=== PATIENT | male | born 1985 | race Hispanic/Latino ===

== ENCOUNTER 2017-03-27 22:55 | Emergency (ER) | payer MEDICAID, OTHER ==
[2017-03-27 23:17] VITALS: BMI 25.7
[2017-03-27 23:36] VITALS: TEMP 98.7; O2SAT 96
--- NOTE | 2017-03-27 23:42 | ED PDOC ---
Arrival/HPI - General Time Seen by Provider: 03/27/17 23:17 Historian: Patient - History of Present Illness Narrative History of Present Illness (Text): 03/27/17 23:39 Prashanth Griffith is a 31 year old male, with a history of opiate abuse, presents to the emergency department for evaluation following heroin overdose. Patient was given narcan in the field by EMT after which he regained consciousness. Patient states he injected and snorted heroin. Denies any suicidal or homicidal ideation. Symptom Onset: Sudden Symptom Course: Improving Severity Level: Mild Context: Home Past Medical History - Provider Review Nursing Documentation Reviewed: Yes - Infectious Disease Hx of Infectious Diseases: None - Cardiac Hx Cardiac Disorders: No Hx Hypertension: No - Pulmonary Hx Respiratory Disorders: No Hx Tuberculosis: No - Neurological Hx Neurological Disorder: No Hx Seizures: No - HEENT Hx HEENT Disorder: No - Renal Hx Renal Disorder: No - Endocrine/Metabolic Hx Endocrine Disorders: No - Hematological/Oncological Hx Blood Disorders: No - Integumentary Hx Dermatological Disorder: No - Musculoskeletal/Rheumatological Hx Falls: No - Gastrointestinal Hx Gastrointestinal Disorders: No - Genitourinary/Gynecological Hx Genitourinary Disorders: No Hx Sexually Transmitted Diseases: No - Psychiatric Hx Substance Use: Yes (+Heroin, +Cocaine, +Marijuana) - Anesthesia Hx Anesthesia: No Family/Social History - Physician Review Nursing Documentation Reviewed: Yes Family/Social History: No Known Family HX Smoking Status: Heavy Smoker > 10 Cigarettes Daily Hx Alcohol Use: Yes (Socially) Hx Substance Use: Yes (+Heroin, +Cocaine, +Marijuana) Substance used: heroin Allergies/Home Meds Allergies/Adverse Reactions: Allergies No Known Allergies Allergy (Verified 05/24/16 19:53) Review of Systems - Physician Review All systems were reviewed & negative as marked: Yes - Review of Systems Constitutional: Normal. absent: Fatigue, Fevers Respiratory: absent: SOB, Cough Cardiovascular: absent: Chest Pain, Palpitations Gastrointestinal: absent: Abdominal Pain, Diarrhea, Nausea, Vomiting Neurological: absent: Headache, Dizziness Psychiatric: Other (heroin overdose ). absent: Suicidal Ideation Physical Exam Vital Signs Reviewed: Yes Vital Signs Temp Pulse Resp BP Pulse Ox 03/28/17 02:08 108 H 19 102/78 96 03/28/17 01:00 115 H 16 115/78 95 03/27/17 23:15 98.7 F 141 H 18 128/80 96 Temperature: Afebrile Blood Pressure: Normal Pulse: Tachycardic Respiratory Rate: Normal Appearance: Positive for: Comfortable Pain Distress: None Mental Status: Positive for: Alert and Oriented X 3 - Systems Exam Head: Present: Atraumatic, Normocephalic Pupils: Present: PERRL Conjunctiva: Present: Normal Mouth: Present: Moist Mucous Membranes Respiratory/Chest: Present: Clear to Auscultation, Good Air Exchange. No: Respiratory Distress, Accessory Muscle Use Cardiovascular: Present: Normal S1, S2, Tachycardic. No: Murmurs Abdomen: Present: Normal Bowel Sounds. No: Tenderness, Distention, Peritoneal Signs Upper Extremity: Present: Normal Inspection. No: Cyanosis, Edema Lower Extremity: Present: Normal Inspection. No: Edema Neurological: Present: GCS=15, CN II-XII Intact, Motor Func Grossly Intact, Normal Sensory Function. No: Speech Normal (slurred speech ) Skin: Present: Warm, Dry, Normal Color. No: Rashes Psychiatric: Present: Alert, Oriented x 3. No: Suicidal Ideation, Homicidal Ideation Medical Decision Making ED Course and Treatment: 03/27/17 23:44 Impression: A 31 year old male who presents to the emergency department for evaluation of heroin overdose. Plan: -- EKG -- Labs -- IV fluids -- Reassess and disposition Progress Notes: 03/27/17 23:45 EKG reviewed by me: Sinus Tachycardia @ 138 bpm. Normal axis. Normal interval. 03/28/17 02:32 Patient is ambulatory in the emergency department with steady gait. Patient's friend is willing to take patient home. Patient is stable for discharge. Advised to present to emergency department for any new/worsening symptoms and follow up with PMD within few days. - Lab Interpretations Lab Results: 03/28/17 00:30 03/28/17 00:30 Lab Results 03/28/17 00:30: Sodium 142, Potassium 4.6, Chloride 105, Carbon Dioxide 24, Anion Gap 18, BUN 15, Creatinine 0.9, Est GFR ( Amer) > 60, Est GFR (Non- Af Amer) > 60, Random Glucose 105, Calcium 8.9, Total Bilirubin 0.4, AST 39, ALT 57 H, Alkaline Phosphatase 66, Total Protein 7.9, Albumin 4.5, Globulin 3.3 , Albumin/Globulin Ratio 1.4 03/28/17 00:30: WBC 9.4, RBC 4.58, Hgb 12.5 L, Hct 36.8 L, MCV 80.3, MCH 27.3, MCHC 34.0, RDW 15.4 H, Plt Count 259, MPV 9.3, Gran % 83.7 H, Lymph % (Auto) 13.1 L, Barnes % (Auto) 3.0, Eos % (Auto) 0.0 L, Baso % (Auto) 0.2, Gran # 7.88 H , Lymph # 1.2, Barnes # 0.3, Eos # 0.0, Baso # 0.02 I have reviewed the lab results: Yes - EKG Interpretation Interpreted by ED Physician: Yes Type: 12 lead EKG - Medication Orders Current Medication Orders: Discontinued Medications Sodium Chloride (Sodium Chloride 0.9%) 1,000 mls @ 1,000 mls/hr IV .Q1H VIVIAN Last Admin: 03/28/17 00:34 Dose: 1,000 mls/hr - Scribe Statement The provider has reviewed the documentation as recorded by the Theo Avelar Provider Attestation: Provider Scribe Attestation: All medical record entries made by the Scribe were at my direction and personally dictated by me. I have reviewed the chart and agree that the record accurately reflects my personal performance of the history, physical exam, medical decision making, and the department course for this patient. I have also personally directed, reviewed, and agree with the discharge instructions and disposition. Disposition/Present on Arrival - Present on Arrival Any Indicators Present on Arrival: No History of DVT/PE: No History of Uncontrolled Diabetes: No Urinary Catheter: No History Surgical Site Infection Following: None - Disposition Have Diagnosis and Disposition been Completed?: Yes Diagnosis: Heroin dependence Disposition: HOME/ ROUTINE Disposition Time: 02:30 Condition: GOOD Discharge Instructions (ExitCare): Narcotic Abuse (ED) Forms: [employer] (Bel[place]ian)
[2017-03-27] MEDS ORDERED: Sodium Chloride 0.9% 1,000 ML IV SCH (23:45)
[2017-03-28 01:01] LABS: BASO # 0.02 K/mm3 (0.0-2.0); BASO % 0.2 % (0.0-3.0); GRAN # 7.88 (1.4-6.5); GRAN % 83.7 % (50.0-68.0); HEMOGLOBIN 12.5 g/dL (14.0-18.0); LYMPH # 1.2 (1.2-3.4); LYMPH % 13.1 % (22.0-35.0); MEAN CELL VOLUME 80.3 fl (80.0-105.0); MEAN CORPUSCULAR HEMOGLOBIN 27.3 pg (25.0-35.0); MEAN PLATELET VOLUME 9.3 fl (7.0-11.0); MONO # 0.3 (0.1-0.6); PLATELET COUNT 259 10^3/uL (120.0-450.0); RBC 4.58 10^6/uL (3.5-6.1); RED CELL DISTRIBUTION WIDTH 15.4 % (11.5-14.5); WHITE BLOOD COUNT 9.4 10^3/ul (4.5-11.0)
[2017-03-28 01:03] LABS: ALB/GLOB RATIO 1.4 (1.1-1.8); ALBUMIN 4.5 g/dL (3.0-4.8); ALT/SGPT 57 U/L (7-56); AST/SGOT 39 U/L (15-59); BLOOD UREA NITROGEN 15 mg/dL (7-21); CALCIUM 8.9 mg/dL (8.4-10.5); GFR AFRICAN-AMERICAN > 60; GFR NON-AFRICAN AMERICAN > 60
[2017-03-28 02:16] VITALS: BP 102/78; PULSE 108; RESP 19
--- NOTE | 2017-03-28 19:44 | CARD ---
APPROVED REPORT EKG Measurement Heart [id number] <Conclusion> Sinus tachycardia Otherwise normal ECG
== END 2017-03-28 02:24 | disposition home or self-care (01) ==
LOC: ED 22:55
DX: F11.20 Opioid dependence, uncomplicated (principal)
CPT/HCPCS: 80053; 85025; 93005; 96360; 99284; J7040

== ENCOUNTER 2017-03-30 23:20 | Emergency (ER) | payer OTHER ==
[2017-03-30 23:20] VITALS: BMI 25.7
[2017-03-30 23:49] VITALS: TEMP 98.3
--- NOTE | 2017-03-30 23:50 | ED PDOC ---
Arrival/HPI - General Chief Complaint: Substance Abuse Time Seen by Provider: 03/30/17 23:30 Historian: Patient - History of Present Illness Narrative History of Present Illness (Text): 03/30/17 23:49 Prashanth Griffith is a 31 year old male, with a history of opiate abuse, presents to the emergency department via ambulance for evaluation following heroin overdose (per EMS). Patient admits to recreational heroin use. Received narcan in the field. Denies any suicidal and homicidal ideations. Patient asking to speak with a PES counsellor. Time/Duration: Prior to Arrival Severity Level: Mild Activities at Onset: Light Context: Home Past Medical History - Provider Review Nursing Documentation Reviewed: Yes - Infectious Disease Hx of Infectious Diseases: None - Cardiac Hx Cardiac Disorders: No Hx Hypertension: No - Pulmonary Hx Respiratory Disorders: No Hx Tuberculosis: No - Neurological Hx Neurological Disorder: No Hx Seizures: No - HEENT Hx HEENT Disorder: No - Renal Hx Renal Disorder: No - Endocrine/Metabolic Hx Endocrine Disorders: No - Hematological/Oncological Hx Blood Disorders: No - Integumentary Hx Dermatological Disorder: No - Musculoskeletal/Rheumatological Hx Falls: No - Gastrointestinal Hx Gastrointestinal Disorders: No - Genitourinary/Gynecological Hx Genitourinary Disorders: No Hx Sexually Transmitted Diseases: No - Psychiatric Hx Psychophysiologic Disorder: Yes Hx Substance Use: Yes (+Heroin, +Cocaine, +Marijuana) - Anesthesia Hx Anesthesia: No Family/Social History Smoking Status: Heavy Smoker > 10 Cigarettes Daily Hx Alcohol Use: Yes (Socially) Hx Substance Use: Yes (+Heroin, +Cocaine, +Marijuana) Substance used: [employer] Allergies/Home Meds Allergies/Adverse Reactions: Allergies No Known Allergies Allergy (Verified 03/30/17 23:43) Physical Exam - Physical Exam Narrative Physical Exam (Text): Constitutional: Normal. absent: Fatigue, Weight Change, Fevers Eyes: Normal ENT: Normal Respiratory: Normal absent: SOB, Cough, Sputum Cardiovascular: Normal absent: Chest pain, Palpitations, Syncope Gastrointestinal:Normal absent: Abdominal pain, Diarrhea, Nausea, Vomiting Genitourinary: Normal. absent: Dysuria, Frequency, Hematuria Musculoskeletal: Normal. absent: Arthralgias, Back Pain, Neck Pain Skin: Normal Neurological: Normal absent: Focal Weakness Endocrine: Normal Hemo/Lymphatic: Normal Psychiatric: Heroin Overdose - Physical exam Patient appears age appropriate, speaking full sentences without difficulty. - Systems Exam Head: Present: Atraumatic, Normocephalic Pupils: Present: PERRL Extraocular Muscles: Present: EOMI Conjunctiva: Present: Normal Mouth: Present: Moist Mucous Membranes Neck: Present: Normal Range of Motion. No: MIDLINE TENDERNESS, Paraspinal Tenderness Respiratory/Chest: Present: Clear to Auscultation, Good Air Exchange. No: Respiratory Distress, Accessory Muscle Use, Tachypnic Cardiovascular: Present: Regular Rate and Rhythm, Normal S1, S2, Peripheral Pulses Present. No: Murmurs Abdomen: Present: Normal Bowel Sounds, No: Tenderness, Peritoneal Signs, Rebound, Guarding, Distention Back: Present: Normal Inspection. No: Midline Tenderness, Paraspinal Tenderness Upper Extremity: Present: Normal Inspection. No: Cyanosis, Edema Lower Extremity: Present: Normal Inspection. No: Edema Neurological: Present: GCS=15, Speech Normal, cranial nerves II through XII fully intact with no cerebellar abnormality, neuro-sensory fully intact. No focal neurological deficits. Skin: Present: Warm, Dry, Normal Color. No: Rashes Lymphatic: Present: OX3, NI, NC Psychiatric: Present: Alert, Oriented x 3, Normal Insight, Normal Concentration Vital Signs Reviewed: Yes Vital Signs Temp Pulse Resp BP Pulse Ox 03/31/17 03:20 97 H 16 127/84 97 03/31/17 01:20 118 H 16 128/90 98 03/30/17 23:43 98.3 F 130 H 24 133/94 H 95 Temperature: Afebrile Blood Pressure: Normal Pulse: Tachycardic Respiratory Rate: Normal Appearance: Positive for: Non-Toxic Pain Distress: None Mental Status: Positive for: Alert and Oriented X 3 Medical Decision Making ED Course and Treatment: 03/30/17 23:58 Impression: A 31 year old male who presents to the ed for evaluation following heroin overdose. Plan: -- Labs -- Drug screen -- Alcohol level -- IV fluids -- Urinalysis Previous visits: Reviewed previous visit from 03/27/17 when patient was discharged home after being treated for heroin overdose. Progress Notes: 03/31/17 00:02 EKG interpreted by me: Sinus Tachycardia @ [address] segment elevation. Normal intervals. 03/31/17 05:39 patient in no distress I advised patient about dangers of drug use and potential for a deadly overdose I also advised patient to stay in the hospital pt states he does not want to stay and wishes to be dc'd home states he is going into detox this upcoming Monday pt is clinically sober, has good insight and judgment. Verbalized risks of leaving and drug use, and verbalized understanding pt ambulates in the ER with steady gait, no tremors, tolerates PO without difficulty Pt states he understands to return to the ER right away for new or worsening symptoms or for inability to f/u with PMD or specialist as instructed. Patient states that he fully agrees with and understands discharge instructions. States that he agrees with the plan and disposition. Verbalized and repeated discharge instructions and plan. I have given the patient opportunity to ask any additional questions. - Lab Interpretations Lab Results: 03/31/17 00:30 03/31/17 00:30 Lab Results 03/31/17 02:10: Urine Opiates Screen Positive H, Urine Methadone Screen Negative , Ur Barbiturates Screen Negative, Ur Phencyclidine Scrn Negative, Ur Amphetamines Screen Negative, U Benzodiazepines Scrn Negative, U Oth Cocaine Metabols Positive H, U Cannabinoids Screen Positive H 03/31/17 02:10: Urine Color Yellow, Urine Appearance Clear, Urine pH 6.0, Ur Specific [place] >= 1.030, Urine Protein 30 H, Urine Glucose (UA) Negative, Urine Ketones Negative, Urine Blood Negative, Urine Nitrate Negative, Urine Bilirubin Negative, Urine Urobilinogen 0.2, Ur Leukocyte Esterase Negative, Urine RBC 0 - 2, Urine WBC 0 - 2, Ur Epithelial Cells 0 - 2 03/31/17 00:30: Alcohol, Quantitative 108 H 03/31/17 00:30: Salicylates < 1 L, Acetaminophen < 10.0 L 03/31/17 00:30: Sodium 143, Potassium 4.4, Chloride 105, Carbon Dioxide 24, Anion Gap 18, BUN 18, Creatinine 0.9, Est GFR ( Amer) > 60, Est GFR (Non- Af Amer) > 60, Random Glucose 76, Calcium 8.8, Total Bilirubin 0.5, AST 33, ALT 46, Alkaline Phosphatase 84, Total Creatine Kinase 153, Total Protein 7.7, Albumin 4.6, Globulin 3.1, Albumin/Globulin Ratio 1.5 03/31/17 00:30: WBC 12.7 H D, RBC 4.48, Hgb 12.2 L, Hct 36.0 L, MCV 80.4, MCH 27.2, MCHC 33.9, RDW 15.3 H, Plt Count 277, MPV 8.7, Gran % 80.0 H, Lymph % ( Auto) 14.9 L, Stark % (Auto) 4.7, Eos % (Auto) 0.2 L, Baso % (Auto) 0.2, Gran # 10.15 H, Lymph # 1.9, Stark # 0.6, Eos # 0.0, Baso # 0.02 - RAD Interpretation Radiology Orders: 03/30/17 23:56 CHEST PORTABLE [RAD] Stat - Medication Orders Current Medication Orders: Discontinued Medications Sodium Chloride (Sodium Chloride 0.9%) 2,000 mls @ 1,000 mls/hr IV .Q2H STA Stop: 03/31/17 01:54 Last Admin: 03/31/17 00:34 Dose: 1,000 mls/hr - Scribe Statement The provider has reviewed the documentation as recorded by the Theo Avelar Provider Attestation: All medical record entries made by the Theo were at my direction and personally dictated by me. I have reviewed the chart and agree that the record accurately reflects my personal performance of the history, physical exam, medical decision making, and the department course for this patient. I have also personally directed, reviewed, and agree with the discharge instructions and disposition. Disposition/Present on Arrival - Present on Arrival Any Indicators Present on Arrival: No History of DVT/PE: No History of Uncontrolled Diabetes: No Urinary Catheter: No History of Decub. Ulcer: No History Surgical Site Infection Following: None - Disposition Have Diagnosis and Disposition been Completed?: Yes Diagnosis: Drug dependence Disposition: HOME/ ROUTINE Disposition Time: 05:43 Patient Plan: Discharge Condition: GOOD Discharge Instructions (ExitCare): Narcotic Abuse (ED) Additional Instructions: PLEASE RETURN TO THE EMERGENCY DEPARTMENT FOR NEW OR WORSENING SYMPTOMS. RETURN RIGHT AWAY IF YOU CANNOT FOLLOW UP WITH YOUR PRIMARY CARE DOCTOR, CLINIC, OR SPECIALIST IN 1-2 DAYS. Referrals: Marisa Gibbs MD [Staff Provider] - Follow up with primary Forms: [employer] (Chinese)
[2017-03-30] MEDS ORDERED: Sodium Chloride 0.9% 2,000 ML IV STA (23:55)
[2017-03-31 00:49] LABS: BASO # 0.02 K/mm3 (0.0-2.0); BASO % 0.2 % (0.0-3.0); EOS % 0.2 % (1.5-5.0); GRAN # 10.15 (1.4-6.5); HEMOGLOBIN 12.2 g/dL (14.0-18.0); LYMPH # 1.9 (1.2-3.4); LYMPH % 14.9 % (22.0-35.0); MEAN CELL VOLUME 80.4 fl (80.0-105.0); MEAN CORPUSCULAR HEMOGLOBIN 27.2 pg (25.0-35.0); MEAN CORPUSCULAR HGB CONC 33.9 g/dl (31.0-37.0); MEAN PLATELET VOLUME 8.7 fl (7.0-11.0); MONO # 0.6 (0.1-0.6); MONO % 4.7 % (1.0-6.0); PLATELET COUNT 277 10^3/uL (120.0-450.0); RBC 4.48 10^6/uL (3.5-6.1); RED CELL DISTRIBUTION WIDTH 15.3 % (11.5-14.5); WHITE BLOOD COUNT 12.7 10^3/ul (4.5-11.0)
[2017-03-31 00:56] LABS: SALICYLATE < 1 mg/dL (2.0-20.0)
[2017-03-31 00:58] LABS: ALB/GLOB RATIO 1.5 (1.1-1.8); ALBUMIN 4.6 g/dL (3.0-4.8); ALT/SGPT 46 U/L (7-56); AST/SGOT 33 U/L (15-59); BLOOD UREA NITROGEN 18 mg/dL (7-21); CALCIUM 8.8 mg/dL (8.4-10.5); GFR AFRICAN-AMERICAN > 60; GFR NON-AFRICAN AMERICAN > 60
[2017-03-31 01:06] LABS: ACETAMINOPHEN < 10.0 ug/ml (10.0-20.0)
[2017-03-31 02:27] LABS: URINE BILIRUBIN NEGATIVE (NEGATIVE); URINE BLOOD NEGATIVE (NEGATIVE); URINE GLUCOSE (UA) NEGATIVE (NEGATIVE); URINE LEUKOCYTE ESTERASE NEGATIVE Leu/uL (NEGATIVE); URINE NITRATE NEGATIVE (NEGATIVE); URINE PROTEIN 30 mg/dL (<30 mg/dL); URINE UROBILINOGEN 0.2 E.U./dL (<1 E.U./dL)
[2017-03-31 02:34] LABS: URINE APPEARANCE CLEAR (CLEAR); URINE COLOR YELLOW (YELLOW)
[2017-03-31 02:45] LABS: URINE EPITHELIAL CELLS 0 - 2 /hpf (0-5); URINE RBC 0 - 2 /hpf (0-2); URINE WBC 0 - 2 /hpf (0-6)
[2017-03-31 03:00] LABS: BARBITURATES, UR NEGATIVE (NEGATIVE); BENZODIAZEPINES, UR NEGATIVE (NEGATIVE); OPIATES, UR POSITIVE (NEGATIVE); PHENCYCLIDINE, UR NEGATIVE (NEGATIVE)
[2017-03-31 04:42] VITALS: RESP 16
[2017-03-31 05:57] VITALS: BP 136/84; PULSE 90; O2SAT 95
--- NOTE | 2017-03-31 09:14 | RAD ---
HISTORY: med clearance COMPARISON: No prior. FINDINGS: LUNGS: No active pulmonary disease. PLEURA: No significant pleural effusion identified, no pneumothorax apparent. CARDIOVASCULAR: Normal. OSSEOUS STRUCTURES: No significant abnormalities. VISUALIZED UPPER ABDOMEN: Normal. OTHER FINDINGS: None. IMPRESSION: No active disease.
--- NOTE | 2017-03-31 23:48 | CARD ---
APPROVED REPORT EKG Measurement Heart [id number] <Conclusion> Sinus tachycardia Otherwise normal ECG
== END 2017-03-31 05:45 | disposition home or self-care (01) ==
LOC: ED 23:20
DX: F11.20 Opioid dependence, uncomplicated (principal)
CPT/HCPCS: 71010; 80053; 80320; 80324; 80329; 80345; 80346; 80349; 80353; 80358; 80361; 81001; 82550; 83992; 85025; 90791; 93005; 99284; J7040